=== PATIENT | female | born 1970 | race Caucasian/White ===

== ENCOUNTER 2016-08-23 19:03 | Emergency (ER) | payer MEDICAID ==
--- NOTE | 2016-08-23 19:49 | ER Document Report ---
ED Medical Screen (RME) - General Stated Complaint: RIGHT WRIST PAIN Notes: Right wrist pain with radiation extending up the arm patient states it's in her vein. No noted injury.. I greeted and performed a rapid initial assessment of this patient. Comprehensive ED assessment and evaluation of the patient, analysis of test results and completion of the medical decision making process will be conducted by additional ED providers. TRAVEL OUTSIDE OF THE [place] IN LAST 30 DAYS: No - Related Data Allergies/Adverse Reactions: No Known Allergies Allergy (Verified 08/25/14 03:58) Past Medical History Pulmonary Medical History: Reports: Hx COPD GI Medical History: Reports: Hx Gastroesophageal Reflux Disease Past Surgical History: Reports: Hx Section, Hx Cholecystectomy, Hx Tubal Ligation - Immunizations Hx Diphtheria, Pertussis, Tetanus Vaccination: No
[2016-08-23] MEDS ORDERED: NAPROXEN 250 MG TABLET PO ONE (20:47)
[2016-08-23] MEDS ORDERED: HYDROCODONE/ACETAMINOPHEN 5-325 MG 6 TAB/DSPK PO PRN (20:47)
--- NOTE | 2016-08-23 20:51 | ER Document Report ---
HPI - HPI Patient complains to provider of: right wrist pain Pain Level: 5 Context: Patient is a 45-year-old female that comes emergency department for chief complaint of right wrist pain and swelling that she started noticing today. She is unsure if she had any injury to the area. She is right-handed. She denies any redness, fever, chills, nausea, vomiting. She smokes, she denies any history of blood clots, she denies recent surgery or travel. She states she looked up swelling in the arm and blood clot was a possibility so she became concerned and came in. - REPRODUCTIVE Reproductive: DENIES: : - DERM Skin Color: Normal Past Medical History - General Information source: Patient - Social History Smoking Status: Current Every Day Smoker Chew tobacco use (# tins/day): No Frequency of alcohol use: None Drug Abuse: None Lives with: Family Family History: Reviewed & Not Pertinent Patient has suicidal ideation: No Patient has homicidal ideation: No Pulmonary Medical History: Reports: Hx COPD Renal/ Medical History: Denies: Hx Peritoneal Dialysis GI Medical History: Reports: Hx Gastroesophageal Reflux Disease Past Surgical History: Reports: Hx Section, Hx Cholecystectomy, Hx Tubal Ligation - Immunizations Hx Diphtheria, Pertussis, Tetanus Vaccination: No Vertical Provider Document - CONSTITUTIONAL General Appearance: WD/WN, No Apparent Distress - INFECTION CONTROL TRAVEL OUTSIDE OF THE [place] IN LAST 30 DAYS: No - HEENT HEENT: Atraumatic, Normocephalic - NECK Neck: Normal Inspection - RESPIRATORY Respiratory: Breath Sounds Normal, No Respiratory Distress O2 Sat by Pulse Oximetry: 97 - CARDIOVASCULAR Cardiovascular: Regular Rate, Regular Rhythm - GI/ABDOMEN Gastrointestinal: Abdomen Soft, Abdomen Non-Tender - BACK Back: Normal Inspection - MUSCULOSKELETAL/EXTREMETIES Musculoskeletal/Extremeties: Tender - mild soft tissue swelling over the flexor radial aspect of the right wrist, there is mild tenderness to the area, there is no edema, there is no erythema or irregular heat to the area, there is no induration or fluctuance. Normal range of motion of the wrist, elbow, fingers, normal capillary refill and sensation, normal radial pulse Course - Re-evaluation Re-evalutation: There is mild soft tissue swelling over the flexor radial aspect of the right wrist, there is mild tenderness to the area, there is no edema, there is no erythema or irregular heat to the area, there is no induration or fluctuance. No evidence of infection or blood clot. Appears to be injury related. Patient admits that she might have injured herself when lifting an object. Patient was provided with a premade immobilization device, anti-inflammatory medication, discussed icing, primary care follow-up, return precautions. Patient states understanding and agreement. - Vital Signs Vital signs: Temp Pulse Resp BP Pulse Ox 98 F 75 16 123/68 97 08/23/16 19:48 08/23/16 19:48 08/23/16 19:48 08/23/16 19:48 08/23/16 19:48 Procedures - Immobilization right wrist Pre-Proc Neuro Vasc Exam: Normal Immobilizer type: Cock-up - Right wrist Performed by: RN Post-Proc Neuro Vasc Exam: Normal Alignment checked and good: Yes Discharge - Discharge Clinical Impression: Wrist pain Qualifiers: Laterality: right Qualified Code(s): M25.531 - Pain in right wrist Condition: Stable Disposition: HOME, SELF-CARE Additional Instructions: There is some soft tissue swelling in the wrist area, both on imaging and on examination. X-ray shows no other abnormality. Physical examination does not suggest either blood clot or infection. This appears to be from a strain injury. Wear the splint if comfortable, take the anti-inflammatory, apply ice to the area 3-4 times a day for 10-15 minutes. Follow-up with primary care. Return to emergency department for any concerning or worsening symptoms including redness to the area, severe/increased swelling, fever, etc. Prescriptions: Naproxen 500 mg PO BID #14 tablet
[2016-08-23 21:54] VITALS: BP 120/84
== END 2016-08-23 21:54 | disposition home or self-care (01) ==
LOC: ER 19:03
DX: M25.531 Pain in right wrist (principal); F17.200 Nicotine dependence, unspecified, uncomplicated; J44.9 Chronic obstructive pulmonary disease, unspecified; Z90.49 Acquired absence of other specified parts of digestive tract; Z98.51 Tubal ligation status
CPT/HCPCS: 99283; 73110; L3984; J3490

== ENCOUNTER → 2018-08-03 | Outpatient (CLI) | payer MEDICAID ==
--- NOTE | 2018-08-03 13:25 | RADIOLOGY REPORT (SQ) ---
EXAM DESCRIPTION: CHEST PA/LATERAL COMPLETED DATE/TIME: 08/03/2018 12:55 pm REASON FOR STUDY: COUGH COMPARISON: 02/08/2013 EXAM PARAMETERS: NUMBER OF VIEWS: two views TECHNIQUE: Digital Frontal and Lateral radiographic views of the chest acquired. RADIATION DOSE: NA LIMITATIONS: none FINDINGS: LUNGS AND PLEURA: No opacities, masses or pneumothorax. No pleural effusion. MEDIASTINUM AND HILAR STRUCTURES: No masses or contour abnormalities. HEART AND VASCULAR STRUCTURES: Heart normal size. No evidence for failure. BONES: No acute findings. HARDWARE: None in the chest. OTHER: No other significant finding. IMPRESSION: NO SIGNIFICANT RADIOGRAPHIC FINDING IN THE CHEST. TECHNICAL DOCUMENTATION: JOB ID: [id number]- All Rights Reserved Reading location - IP/workstation name: [email or web address]
== END ==
LOC: OD 12:39
PROVIDERS: ATTEND Nurse Practitioner Family
DX: R05 Cough (principal)
CPT/HCPCS: 71046

== ENCOUNTER 2019-07-20 18:02 | Emergency (ER) | payer MEDICAID ==
[2019-07-20 18:22] VITALS: BP 141/84
== END 2019-07-20 22:05 | disposition left against medical advice (07) ==
LOC: ER 18:02
DX: Z53.21 Procedure and treatment not carried out due to patient leaving prior to being seen by health care provider (principal)

== ENCOUNTER 2019-09-17 20:08 | Emergency (ER) | payer MEDICAID ==
[2019-09-17 20:27] VITALS: BP 118/79
[2019-09-17] MEDS ORDERED: ACETAMINOPHEN 325 MG TABLET PO ONE (20:28)
--- NOTE | 2019-09-17 20:31 | ER Document Report ---
HPI - HPI Patient complains to provider of: Laceration Time Seen by Provider: 09/17/19 20:28 Onset: This afternoon Onset/Duration: Sudden Quality of pain: Burning Pain Level: 3 Context: Patient was using a knife to cut at home and slipped cutting her left second finger. Patient with laceration to the tip of the left second finger that has continued to bleed. Patient's tetanus immunization is currently up-to-date. Associated Symptoms: Other - Left finger laceration Exacerbated by: Movement Relieved by: Denies Similar symptoms previously: No Recently seen / treated by doctor: No - ROS ROS below otherwise negative: Yes Systems Reviewed and Negative: Yes All other systems reviewed and negative - GASTROINTESTINAL Gastrointestinal: DENIES: Nausea - REPRODUCTIVE Reproductive: DENIES: : - MUSCULOSKELETAL Musculoskeletal: REPORTS: Extremity pain - DERM Skin Problems: Laceration Past Medical History - General Information source: Patient - Social History Smoking Status: Current Some Day Smoker Frequency of alcohol use: None Drug Abuse: None Lives with: Family Family History: Reviewed & Not Pertinent Pulmonary Medical History: Reports: Hx COPD Renal/ Medical History: Denies: Hx Peritoneal Dialysis GI Medical History: Reports: Hx Gastroesophageal Reflux Disease Past Surgical History: Reports: Hx Section, Hx Cholecystectomy, Hx Tubal Ligation - Immunizations Hx Diphtheria, Pertussis, Tetanus Vaccination: No Vertical Provider Document - CONSTITUTIONAL Agree With Documented VS: Yes Exam Limitations: No Limitations General Appearance: WD/WN, No Apparent Distress - INFECTION CONTROL TRAVEL OUTSIDE OF THE [place] IN LAST 30 DAYS: No - HEENT HEENT: Atraumatic, Normocephalic - NECK Neck: Normal Inspection - RESPIRATORY Respiratory: No Respiratory Distress - CARDIOVASCULAR Pulses: Normal: Radial - MUSCULOSKELETAL/EXTREMETIES Musculoskeletal/Extremeties: MAEW, FROM - NEURO Level of Consciousness: Awake, Alert, Appropriate Motor/Sensory: No Motor Deficit - DERM Integumentary: Warm, Dry, Laceration - Superficial .5 cm avulsion laceration to distal tip of left second finger, minimal bleeding noted Course - Re-evaluation Re-evalutation: 09/17/19 Bleeding stopped to wound with placement of Gelfoam dressing per nurse. - Vital Signs Vital signs: Temp Pulse Resp BP Pulse Ox 98.2 F 67 16 118/79 98 09/17/19 20:25 09/17/19 20:25 09/17/19 20:25 09/17/19 20:25 09/17/19 20:25 Discharge - Discharge Clinical Impression: Skin avulsion Condition: Stable Disposition: HOME, SELF-CARE Instructions: Non-Sutured Laceration ([facility]) Additional Instructions: Return immediately for any new or worsening symptoms Followup with your primary care provider, call tomorrow to make a followup appointment Keep wound covered as it continues to heal Referrals: WINNIE DONOHUE, DRAFTING DETAILER-C [Primary Care Provider] - Follow up as needed
== END 2019-09-17 21:03 | disposition home or self-care (01) ==
LOC: ER 20:08
DX: S61.211A Laceration without foreign body of left index finger without damage to nail, initial encounter (principal); W26.0XXA Contact with knife, initial encounter; Y93.89 Activity, other specified; F17.200 Nicotine dependence, unspecified, uncomplicated; J44.9 Chronic obstructive pulmonary disease, unspecified
CPT/HCPCS: 99283; J3490

== ENCOUNTER → 2019-10-30 | Outpatient (CLI) | payer MEDICAID ==
--- NOTE | 2019-10-30 13:47 | WOMENS IMAGING REPORT ---
EXAM DESCRIPTION: BILAT DIAGNOSTIC MAMMO W/CAD; U/S BREAST UNILATERAL, COMPL IMAGES COMPLETED DATE/TIME: 10/30/2019 11:37 am; 10/30/2019 12:32 pm REASON FOR STUDY: N63.21 UNSPECIFIED LUMP IN THE LEFT BREAST, UPPER OUTER QUADRANT; LT BREAST N63.21 N63.21 UNSPECIFIED LUMP IN THE LEFT BREAST, UPPER OUTER QUAD COMPARISON: None. EXAM PARAMETERS: Standard craniocaudal and mediolateral oblique views of each breast recorded using digital acquisition. Additional true lateral images of the left breast acquired. Read with the assistance of CAD: .[facility] - [employer] Version 9.2 LIMITATIONS: None. FINDINGS: RIGHT BREAST MASSES: No suspicious masses. CALCIFICATIONS: No new or suspicious calcifications. ARCHITECTURAL DISTORTION: None. ASYMMETRY: None noted. OTHER: No other significant findings. LEFT BREAST MASSES: No suspicious masses. CALCIFICATIONS: No new or suspicious calcifications. ARCHITECTURAL DISTORTION: None. ASYMMETRY: Indistinct asymmetry in the upper-outer breast corresponding to the palpable area. More c onspicuous and denser on the CC image. OTHER: No other significant finding. BREAST ULTRASOUND: TECHNIQUE: Static and dynamic grayscale images acquired of the left breast in the specific areas of c linical/mammographic concern, upper outer breast at 1- 2 o'clock location and axilla. Selected color Doppler images recorded. ELASTOGRAPHY PERFORMED: No. LIMITATIONS: None. FINDINGS: MASS: Irregular hypoechoic mass measuring approximately 2.2 x 3.0 x 3.4 cm. Indistinct margins. No significant flow on Doppler imaging. Left axillary lymph node with thickened cortex. ELASTOGRAPHY CHARACTERISTICS: Not applicable. OTHER: No other significant finding. IMPRESSION: Indistinct area of asymmetry in the upper-outer left breast which has suspicious appeara nce on ultrasound. Additionally there is a suspicious left axillary lymph node on ultrasound. No wo rrisome findings in the right breast. BREAST DENSITY: b. There are scattered areas of fibroglandular density. BIRAD: ASSESSMENT: 4 Suspicious. Biopsy should be performed in the absence of clinical contra-indic ation. RECOMMENDATION: RECOMMENDED FOLLOW UP: Birads 4: Biopsy should be performed in the absence of clinic al contraindication. SPECIFIC INTERVENTION/IMAGING/CONSULTATION RECOMMENDED:The suspicious finding(s) amenable to US guide d core/vacuum assisted biopsy. COMMUNICATION:The imaging findings were not discussed with the patient. Her referring provider has be en notified of the findings. COMMENT: The patient has been notified of the results by letter per SA requirements. Additional no tification policies are in place for contacting patient with suspicious or incomplete findings. Quality ID #225: The [employer] recommends an annual screening mammogram for women aged 40 years or over. This facility utilizes a reminder system to ensure that all patients receive reminder letters, and/or direct phone calls for appointments. This includes reminders for routine scr eening mammograms, diagnostic mammograms, or other Breast Imaging Interventions when appropriate. Th is patient will be placed in the appropriate reminder system. TECHNICAL DOCUMENTATION: FINDING NUMBER: (1) ASSESSMENT: (1) JOB ID: [id number] 2010 [employer]- All Rights Reserved Reading location - IP/workstation name: [email or web address]
--- NOTE | 2019-10-30 13:47 | WOMENS IMAGING REPORT ---
EXAM DESCRIPTION: BILAT DIAGNOSTIC MAMMO W/CAD; U/S BREAST UNILATERAL, COMPL IMAGES COMPLETED DATE/TIME: 10/30/2019 11:37 am; 10/30/2019 12:32 pm REASON FOR STUDY: N63.21 UNSPECIFIED LUMP IN THE LEFT BREAST, UPPER OUTER QUADRANT; LT BREAST N63.21 N63.21 UNSPECIFIED LUMP IN THE LEFT BREAST, UPPER OUTER QUAD COMPARISON: None. EXAM PARAMETERS: Standard craniocaudal and mediolateral oblique views of each breast recorded using digital acquisition. Additional true lateral images of the left breast acquired. Read with the assistance of CAD: .[facility] [place] [employer] Version 9.2 LIMITATIONS: None. FINDINGS: RIGHT BREAST MASSES: No suspicious masses. CALCIFICATIONS: No new or suspicious calcifications. ARCHITECTURAL DISTORTION: None. ASYMMETRY: None noted. OTHER: No other significant findings. LEFT BREAST MASSES: No suspicious masses. CALCIFICATIONS: No new or suspicious calcifications. ARCHITECTURAL DISTORTION: None. ASYMMETRY: Indistinct asymmetry in the upper-outer breast corresponding to the palpable area. More c onspicuous and denser on the CC image. OTHER: No other significant finding. BREAST ULTRASOUND: TECHNIQUE: Static and dynamic grayscale images acquired of the left breast in the specific areas of c linical/mammographic concern, upper outer breast at 1- 2 o'clock location and axilla. Selected color Doppler images recorded. ELASTOGRAPHY PERFORMED: No. LIMITATIONS: None. FINDINGS: MASS: Irregular hypoechoic mass measuring approximately 2.2 x 3.0 x 3.4 cm. Indistinct margins. No significant flow on Doppler imaging. Left axillary lymph node with thickened cortex. ELASTOGRAPHY CHARACTERISTICS: Not applicable. OTHER: No other significant finding. IMPRESSION: Indistinct area of asymmetry in the upper-outer left breast which has suspicious appeara nce on ultrasound. Additionally there is a suspicious left axillary lymph node on ultrasound. No wo rrisome findings in the right breast. BREAST DENSITY: b. There are scattered areas of fibroglandular density. BIRAD: ASSESSMENT: 4 Suspicious. Biopsy should be performed in the absence of clinical contra-indic ation. RECOMMENDATION: RECOMMENDED FOLLOW UP: Birads 4: Biopsy should be performed in the absence of clinic al contraindication. SPECIFIC INTERVENTION/IMAGING/CONSULTATION RECOMMENDED:The suspicious finding(s) amenable to US guide d core/vacuum assisted biopsy. COMMUNICATION:The imaging findings were not discussed with the patient. Her referring provider has be en notified of the findings. COMMENT: The patient has been notified of the results by letter per SA requirements. Additional no tification policies are in place for contacting patient with suspicious or incomplete findings. Quality ID #225: The [place] [employer] recommends an annual screening mammogram for women aged 40 years or over. This facility utilizes a reminder system to ensure that all patients receive reminder letters, and/or direct phone calls for appointments. This includes reminders for routine scr eening mammograms, diagnostic mammograms, or other Breast Imaging Interventions when appropriate. Th is patient will be placed in the appropriate reminder system. TECHNICAL DOCUMENTATION: FINDING NUMBER: (1) ASSESSMENT: (1) JOB ID: [id number] 2010 [employer]- All Rights Reserved Reading location - IP/workstation name: [email or web address]
== END ==
LOC: WI 11:19
PROVIDERS: ATTEND Nurse Practitioner Family
DX: N63.21 Unspecified lump in the left breast, upper outer quadrant (principal)
CPT/HCPCS: 76641; 77066

== ENCOUNTER → 2019-11-28 | Outpatient (CLI) | payer MEDICAID ==
--- NOTE | 2019-11-28 13:28 | XCELERA REPORT ---
[address] [address] Transthoracic Echocardiogram Report Name: TINY [place] Age: 49 yrs Gender: Female : 1970 Patient Status: Outpatient Patient Location: [facility] Study Date: 11/28/2019 08:20 AM Height: 64 in Weight: 210 lb BSA: 2.0 m2 Reason For Study: SOB, LT BREAST CA Ordering Physician: EDD LUIS Performed By: Mitchell Lehman Interpretation Summary minimal post. pericardial effusion. Aortic root not dilated, not calcified. AV is normal 3 cusps, no , no AR. MV showed no calcified mitral annulus, no MS, no MVP, mild MR with no LA enlargement SOSA is 19.5cc/m2. No LVH, normal LVEF 65-70% with may be elev. LVEDP (B notch on the AML) but no E/E' shown no LVDD evidence. Mild hypokinesis of the inferior wall and inferoseptal wall, this is mild though. there is no LV enlargement, LVESD isss 33 mm . Right heart not enlarged but poorly imaged, There is mild TR with mild elev. RVSP of 33 mmHg, RAP estimated to be 15 mm due to enlarged IVC , and <50% sniff. This is mild pulm hypertension. Summary, Mild pulm hypertension 33 mm Hg. Normal LVEF of 65-770 % with mild hypokinesis of the inferior and inferoseptal wall, clinical correlation with prev.cardiac history recommended. There may be an element of increased LVEDP. AKT. MMode/2D Measurements & Calculations RVDd: 3.1 cm LVIDd: 5.3 cm FS: 37.9 % Ao root diam: 2.8 cm IVSd: 0.92 cm LVIDs: 3.3 cm EDV(Teich): 137.7 ml LVPWd: 0.88 cm ESV(Teich): 44.7 ml Ao root area: 6.3 cm2 LA dimension: 3.9 cm EF(Teich): 67.6 % Doppler Measurements & Calculations MV E max joey: MV P1/2t max joey: Ao V2 max: LV V1 max P.1 cm/sec 80.1 cm/sec 155.4 cm/sec 5.0 mmHg MV A max joey: MV P1/2t: 72.8 msec Ao max PG: LV V1 max: 77.9 cm/sec MVA(P1/2t): 3.0 cm2 9.7 mmHg 111.3 cm/sec MV E/A: 1.2 MV dec slope: LV dP/dt: 1298 mmHg/s 322.2 cm/sec2 MV dec time: 0.23 sec PA V2 max: PI end-d joey: TR max joey: MV P1/2t-pr_phl: 81.9 cm/sec 109.7 cm/sec 208.7 cm/sec 72.8 msec PA max PG: TR max P.7 mmHg 17.4 mmHg I WMSI = 1.19 % Normal = 81 Segments Size X - Cannot 2 - 4 - 1-2 small Interpret 1 - Normal Hypokinetic 3 - AkineticDyskinetic 3-5 moderate 5 - 6-14 large Aneurysmal 15-16 diffuse : EDD LUIS Andre
== END ==
LOC: SP 07:59
PROVIDERS: ATTEND Internal Medicine
DX: R06.02 Shortness of breath (principal); I27.20 Pulmonary hypertension, unspecified; C50.412 Malignant neoplasm of upper-outer quadrant of left female breast
CPT/HCPCS: 93306

== ENCOUNTER → 2019-11-29 | Outpatient (CLI) | payer MEDICAID ==
--- NOTE | 2019-11-30 08:49 | RADIOLOGY REPORT (SQ) ---
EXAM DESCRIPTION: MRI BREAST BILATERAL W/WO IMAGES COMPLETED DATE/TIME: 11/29/2019 10:53 am REASON FOR STUDY: BREAST CA (C50.919) C50.919 MALIGNANT NEOPLASM OF UNSP SITE OF UNSPECIFIED FEMAL COMPARISON: None. PATHOLOGIC CORRELATION: Mammograms and left ultrasound 10/30/2019. CONTRAST TYPE AND DOSE: 20 mL Prohance. RENAL FUNCTION: None indicated. TECHNIQUE: MR imaging performed with a dedicated breast coil. Pre contrast T1 and T2 weighted images . Pre contrast and post contrast enhanced T1 weighted images with fat saturation. Subtraction images, 3D thick and thin MIPS, and kinetic analysis performed on an independent workstat ion. ([employer] TV workstation) Magnet strength: 1.5 T LIMITATIONS: None. FINDINGS: BREAST DENSITY: b. There are scattered areas of fibroglandular density. BACKGROUND PARENCHYMAL ENHANCEMENT:Minimal. RIGHT BREAST: No enhancing or suspicious masses. No clumped, regional/segmental ductal enhancement. CHEST WALL: Normal tissue planes. No abnormal internal mammary nodes. AXILLA: Normal axillary and retro-pectoral nodes. LEFT BREAST:Index lesion 1 o'clock position about 7 cm deep to the nipple measures 2.3 x 2.8 cm AP by transverse diameter. No other masses. No clumped, regional/segmental ductal enhancement. CHEST WALL: Normal tissue planes. No abnormal internal mammary nodes. AXILLA: There are 2 closely opposed axillary nodes, the largest 1.5 x 2.8 cm which has been biopsied . OTHER:No identified liver, bone, or lung lesions. No other significant incidental findings. IMPRESSION: 1. Known malignancy and axillary metastasis left breast. No evidence of multifocal disease. 2. No evidence of malignancy in the right breast. BIRAD: RIGHT BREAST: 1 Negative. LEFT BREAST: 6 Known biopsy-proven malignancy. Appropriate action should be taken. RECOMMENDATION: RECOMMENDED FOLLOW-UP: Per Dr. Layne. TECHNICAL DOCUMENTATION: JOB ID: [id number] 2010 [employer]- All Rights Reserved Reading location - IP/workstation name: [email or web address]
== END ==
LOC: RAD 09:39
PROVIDERS: ATTEND Surgery
DX: C50.912 Malignant neoplasm of unspecified site of left female breast (principal); C77.3 Secondary and unspecified malignant neoplasm of axilla and upper limb lymph nodes
CPT/HCPCS: 77049; A9576

== ENCOUNTER → 2019-11-30 | Outpatient (CLI) | payer MEDICAID ==
--- NOTE | 2019-11-30 10:55 | WOMENS IMAGING REPORT ---
EXAM DESCRIPTION: LEFT DIAGNOSTIC MAMMO W/CAD IMAGES COMPLETED DATE/TIME: 11/30/2019 10:28 am REASON FOR STUDY: N63.20 POST BIOPSY TO ASSESS CLIP PLACEMENT N63.20 UNSPECIFIED LUMP IN THE LEFT B REAST, UNSPECIFIED QUAD COMPARISON: 10/30/2019 EXAM PARAMETERS: Standard craniocaudal and mediolateral oblique images of the breast recorded with d igital acquisition. True lateral view. Read with the assistance of CAD. .[facility] - [employer] Installer Version 9.2 LIMITATIONS: None. FINDINGS: BREAST LATERALITY: left Ribbon marker clip in the upper outer quadrant 9.5 cm deep to the nipple corresponds to the previousl y described abnormality. IMPRESSION: Successful clip placement status post positive biopsy. BREAST DENSITY: b. There are scattered areas of fibroglandular density. BIRAD: ASSESSMENT: 6 Known biopsy-proven malignancy. Surgical excision when clinically appropriate. RECOMMENDATION: RECOMMENDED FOLLOW UP: Per Dr. Layne. SPECIFIC INTERVENTION/IMAGING/CONSULTATION RECOMMENDED:No additional intervention/ imaging/consultati on needed at this time. COMMUNICATION:The imaging findings were not discussed with the patient. Her referring provider has be en notified of the findings. COMMENT: The patient has been notified of the results by letter per MQSA requirements. Additional no tification policies are in place for contacting patient with suspicious or incomplete findings. Quality ID #225: The [employer] [employer] recommends an annual screening mammogram for women aged 40 years or over. This facility utilizes a reminder system to ensure that all patients receive reminder letters, and/or direct phone calls for appointments. This includes reminders for routine scr eening mammograms, diagnostic mammograms, or other Breast Imaging Interventions when appropriate. Th is patient will be placed in the appropriate reminder system. TECHNICAL DOCUMENTATION: FINDING NUMBER: (1) ASSESSMENT: (1) JOB ID: [id number] 2010 [employer]- All Rights Reserved Reading location - IP/workstation name: [email or web address]
== END ==
LOC: WI 10:48
PROVIDERS: ATTEND Surgery
DX: N63.21 Unspecified lump in the left breast, upper outer quadrant (principal)
CPT/HCPCS: 77065

== ENCOUNTER 2020-01-19 02:24 | Emergency (ER) | payer MEDICAID ==
[2020-01-19 02:37] VITALS: BP 127/71
== END 2020-01-19 07:06 | disposition left against medical advice (07) ==
LOC: ER 02:24
DX: Z53.21 Procedure and treatment not carried out due to patient leaving prior to being seen by health care provider (principal)

== ENCOUNTER → 2020-02-29 | Outpatient (CLI) | payer MEDICAID ==
--- NOTE | 2020-02-29 20:31 | XCELERA REPORT ---
[address] [address] Transthoracic Echocardiogram Report Name: TINY [place] Age: 49 yrs Gender: Female : 1970 Patient Status: Outpatient Patient Location: [facility] Study Date: 02/29/2020 01:35 PM Height: 64 in Weight: 195 lb BSA: 1.9 m2 Reason For Study: CHEMOTHERAPY, BREAST CA Ordering Physician: YINA GARRETT Performed By: Mimi Ivan Interpretation Summary Minimal posterior pericardial effusion. Mild calcified ao root, not dilated. AV is a 3 cusps valve, with no and no AR. Mild mitral annular calcification. No MS, No MVP. Mild MR with No left atrial enlargement, SOSA = 27. No LVH, LVEF 60%, stage I LV diastolic dysfunction, and increased LVEDP. Segmental regional wall motion abnormality seen in inferior wall, inferoseptal wall, No LV enlargement. Tricuspid valve, mild TV regurgitation. RVSP = 25 mmHg. Right heart is normal size. TAPSE is reduced, mild RVSD. No ASD. IVC not dilated. Trace PA. Summary of findings = normal 3 cusps AV. Mild MAC, no MS/mild MR, no LA enlargement. No LVH , normal LVEF 60%, with stage I LV Diastolic Dysfunction. Mild regional wall motion abnormality in inferior wall an inferoseptal wall. Normal R heart, but mild RVSD, with no pulm HTN. Mild MR, TR, trace PA. Dr González Dailey. MMode/2D Measurements & Calculations RVDd: 3.2 cm LVIDd: 5.0 cm FS: 34.8 % Ao root diam: 2.7 cm IVSd: 0.95 cm LVIDs: 3.2 cm EDV(Teich): 116.4 ml LVPWd: 0.93 cm ESV(Teich): 42.1 ml Ao root area: 5.5 cm2 LA dimension: 3.8 cm EF(Teich): 63.8 % Doppler Measurements & Calculations MV E max joey: MV P1/2t max joey: Ao V2 max: LV V1 max P.0 cm/sec 70.3 cm/sec 134.2 cm/sec 5.5 mmHg MV A max joey: MV P1/2t: 63.8 msec Ao max PG: LV V1 max: 72.7 cm/sec MVA(P1/2t): 3.4 cm2 7.2 mmHg 117.2 cm/sec MV E/A: 0.98 MV dec slope: LV dP/dt: 1515 mmHg/s 322.4 cm/sec2 MV dec time: 0.22 sec PA V2 max: PI end-d joey: TR max joey: MV P1/2t-pr_phl: 85.9 cm/sec 118.4 cm/sec 232.9 cm/sec 63.8 msec PA max PG: TR max P.0 mmHg 21.7 mmHg I WMSI = 1.38 % Normal = 63 Segments Size X - Cannot 2 - 4 - 1-2 small Interpret 1 - Normal Hypokinetic 3 - AkineticDyskinetic 3-5 moderate 5 - 6-14 large Aneurysmal 15-16 diffuse : YINA GARRETT Andre
== END ==
LOC: SP 13:07
PROVIDERS: ATTEND Physician Assistant Medical
DX: C50.412 Malignant neoplasm of upper-outer quadrant of left female breast (principal); Z79.899 Other long term (current) drug therapy
CPT/HCPCS: 93306

== ENCOUNTER 2020-04-27 14:03 | Emergency (ER) | payer MEDICAID ==
[2020-04-27 14:13] VITALS: BP 128/75
--- NOTE | 2020-04-27 14:27 | ER Document Report ---
HPI - HPI Patient complains to provider of: finger injury Time Seen by Provider: 04/27/20 14:25 Severity: Moderate Context: 49-year-old female past medical history significant for breast cancer undergoing chemo presents to the emergency room with a skin avulsion to the dorsal aspect of her left middle finger. Patient states she was using a knife to cut vegetables when it slipped cutting her finger. States she has been unable to control the bleeding. Not currently on blood thinners. Tetanus is up-to-date. Patient is right-handed. Associated Symptoms: None Exacerbated by: Movement Relieved by: Denies Similar symptoms previously: No Recently seen / treated by doctor: No - ROS Systems Reviewed and Negative: Yes All other systems reviewed and negative - CONSTITUTIONAL Constitutional: DENIES: Fever - REPRODUCTIVE Reproductive: DENIES: : - MUSCULOSKELETAL Musculoskeletal: REPORTS: Extremity pain - DERM Skin Color: Erythema Skin Problems: Laceration Past Medical History - General Information source: Patient - Social History Smoking Status: Current Every Day Smoker Frequency of alcohol use: None Drug Abuse: None Family History: Reviewed & Not Pertinent Patient has suicidal ideation: No Patient has homicidal ideation: No Pulmonary Medical History: Reports: Hx COPD Renal/ Medical History: Denies: Hx Peritoneal Dialysis Malignancy Medical History: Reports: Hx Breast Cancer GI Medical History: Reports: Hx Gastroesophageal Reflux Disease Past Surgical History: Reports: Hx Section, Hx Cholecystectomy, Hx Tubal Ligation - Immunizations Hx Diphtheria, Pertussis, Tetanus Vaccination: No Vertical Provider Document - CONSTITUTIONAL Agree With Documented VS: Yes Exam Limitations: No Limitations General Appearance: Mild Distress - INFECTION CONTROL TRAVEL OUTSIDE OF THE [place] IN LAST 30 DAYS: No - HEENT HEENT: Atraumatic, Normocephalic - NECK Neck: Normal Inspection, Supple - RESPIRATORY Respiratory: Breath Sounds Normal, No Respiratory Distress - CARDIOVASCULAR Cardiovascular: Regular Rate, Regular Rhythm, No Murmur - MUSCULOSKELETAL/EXTREMETIES Musculoskeletal/Extremeties: Tender - Tenderness to the distal aspect of the left middle finger dorsal aspect. Full range of motion. No deformity noted. - NEURO Level of Consciousness: Awake, Alert, Appropriate Motor/Sensory: No Motor Deficit, No Sensory Deficit Notes: Positive left radial pulse. Capillary refill less than 3 seconds. - DERM Integumentary: Warm, Dry Notes: There is a 1/4 cm skin avulsion to the distal medial aspect dorsal side of the left middle finger. Bleeding is persistent. No nail involvement. Course - Re-evaluation Re-evalutation: 04/27/20 14:33 Wound was cleansed with Shur-Clens quick clot and dressing applied by nursing staff as documented. Patient was counseled on proper wound care. Recheck with primary care physician in 2 days. Patient was given strict return to the emergency room guidelines. Return for any new or worsening symptoms. All questions were answered. Patient verbalized understanding and agrees with plan of care. - Vital Signs Vital signs: Temp Pulse Resp BP Pulse Ox 97.8 F 75 16 128/75 H 99 04/27/20 14:10 04/27/20 14:10 04/27/20 14:10 04/27/20 14:10 04/27/20 14:10 Procedures - Laceration/Wound Repair Left Finger 3rd digit Time completed: 14:32 Wound length (cm): 0.5 Wound's Depth, Shape: Superficial Laceration pre-procedure: Shur-Clens applied Wound explored: Clean Wound Repaired With: Other - quick clot Post-procedure wound care: Other - quick clot and dressing applied Post-procedure NV exam normal: Yes Complications: No Discharge - Discharge Clinical Impression: Avulsion of skin of finger Qualifiers: Encounter type: initial encounter Qualified Code(s): S61.209A - Unspecified open wound of unspecified finger without damage to nail, initial encounter Condition: Stable Disposition: HOME, SELF-CARE Instructions: Avulsion Injury ([facility]) Additional Instructions: Leave dressing in place for 48 hours can then remove dressing may need to soak in warm water to remove the quick clot dressing. Recheck with primary care physician in 2 days. Return to the emergency room for any new or worsening symptoms. Referrals: EVON PARRA DO [Primary Care Provider] - Follow up in 3-5 days (Recheck 2 days.)
== END 2020-04-27 14:42 | disposition home or self-care (01) ==
LOC: ER 14:03
DX: S61.209A Unspecified open wound of unspecified finger without damage to nail, initial encounter (principal); C50.919 Malignant neoplasm of unspecified site of unspecified female breast; F17.200 Nicotine dependence, unspecified, uncomplicated; W26.0XXA Contact with knife, initial encounter; Y93.G1 Activity, food preparation and clean up; Z79.899 Other long term (current) drug therapy
CPT/HCPCS: 99282

== ENCOUNTER → 2020-08-02 | Outpatient (CLI) | payer MEDICAID ==
--- NOTE | 2020-08-02 12:39 | WOMENS IMAGING REPORT ---
EXAM DESCRIPTION: U/S EXTREMITY NONVASCULAR LTD IMAGES COMPLETED DATE/TIME: 08/02/2020 11:48 am REASON FOR STUDY: C50.412 MALIG NEOPLASM OF UPPER-OUTER QUADRANT OF LEFT FEMALE BREAST C50.412 ZACHARY G NEOPLASM OF UPPER-OUTER QUADRANT OF LEFT FEMAL COMPARISON: None. TECHNIQUE: Dynamic and static grayscale images acquired of the localized site of clinical concern an d recorded on PACS. Additional selected color Doppler and spectral images recorded. SITE OF CONCERN: Left axilla LIMITATIONS: None. FINDINGS: Several unremarkable axillary lymph nodes are visualized. Defined fatty sammy with no unus ual cortical thickening. Otherwise no solid or cystic mass. IMPRESSION: NO WORRISOME SONOGRAPHIC FINDINGS. UNREMARKABLE BENIGN-APPEARING AXILLARY LYMPH NODES. TECHNICAL DOCUMENTATION: JOB ID: [id number] 2010 [employer]- All Rights Reserved Reading location - IP/workstation name: [email or web address]
== END ==
LOC: WI 11:08
PROVIDERS: ATTEND Surgery
DX: C50.412 Malignant neoplasm of upper-outer quadrant of left female breast (principal)
CPT/HCPCS: 76882

== ENCOUNTER 2020-08-19 09:25 | Emergency (ER) | payer MEDICAID ==
--- NOTE | 2020-08-19 09:58 | EKG REPORT ---
SEVERITY:- ABNORMAL ECG - SINUS BRADYCARDIA Anterior ischemia is possible. : Confirmed by: Nghia Holley MD 19-Aug-2020 09:58:16
--- NOTE | 2020-08-19 10:06 | RADIOLOGY REPORT (SQ) ---
EXAM DESCRIPTION: CHEST SINGLE VIEW IMAGES COMPLETED DATE/TIME: 08/19/2020 9:58 am REASON FOR STUDY: chest pain/palpitation COMPARISON: PA and lateral views of the chest from 08/03/2018. EXAM PARAMETERS: NUMBER OF VIEWS: One view. TECHNIQUE: An AP view of the chest was obtained. RADIATION DOSE: NA LIMITATIONS: None. FINDINGS: LUNGS AND PLEURA: Low inspiratory lung volumes without a superimposed consolidation, pleur al effusion or pneumothorax. MEDIASTINUM AND HILAR STRUCTURES: No mediastinal or hilar contour abnormality. HEART AND VASCULAR STRUCTURES: The cardiac silhouette and pulmonary vasculature are within normal [place] its given the low inspiratory lung volumes. BONES: No acute findings. HARDWARE: The tip of the right IJ single-lumen port projects within the SVC. OTHER: Surgical clips that project within the left axilla. IMPRESSION: Low inspiratory lung volumes without a superimposed acute cardiopulmonary process. TECHNICAL DOCUMENTATION: JOB ID: [id number] 2010 [employer]- All Rights Reserved Reading location - IP/workstation name: [email or web address]
[2020-08-19] MEDS ORDERED: NORFLURANE/PENTAFLUOROPROPANE 30 ML SPRAY TP ONE (10:09)
[2020-08-19 10:55] LABS: HEMATOCRIT 27.4 % (36.0-47.0); HEMOGLOBIN 9.5 g/dL (12.0-15.5); MEAN CORPUSCULAR HEMOGLOBIN 35.4 pg (27.0-33.4); MEAN CORPUSCULAR HGB CONC 34.8 g/dL (32.0-36.0); MEAN CORPUSCULAR VOLUME 102 fl (80-97); PLATELET COUNT 114 10^3/uL (150-450); RED CELL DISTRIBUTION WIDTH 15.4 % (11.5-14.0); WHITE BLOOD COUNT 8.2 10^3/uL (4.0-10.5)
[2020-08-19 11:14] LABS: ALBUMIN 3.7 g/dL (3.5-5.0); ALKALINE PHOSPHATASE 76 U/L (38-126); ANION GAP 8 (5-19); ASPARTATE AMINO TRANSFERASE 23 U/L (14-36); BILIRUBIN,DIRECT 0.2 mg/dL (0.0-0.4); BILIRUBIN,TOTAL 0.3 mg/dL (0.2-1.3); BLOOD UREA NITROGEN 19 mg/dL (7-20); CALCIUM 9.2 mg/dL (8.4-10.2); CARBON DIOXIDE 26 mmol/L (22-30); CHLORIDE 107 mmol/L (98-107); CREATINE KINASE 32 U/L (30-135); GLUCOSE 104 mg/dL (75-110); POTASSIUM 3.8 mmol/L (3.6-5.0); TOTAL PROTEIN 6.3 g/dL (6.3-8.2)
[2020-08-19 11:18] LABS: ABSOLUTE LYMPHOCYTES# (MANUAL) 1.4 10^3/uL (0.5-4.7); BASOPHILS % (MANUAL) 0 % (0-2); EOSINOPHILS % (MANUAL) 0 % (0-6); LYMPHOCYTES % (MANUAL) 17 % (13-45); SEGMENTED NEUTROPHILS % (MAN) 79 % (42-78); TOTAL CELLS COUNTED 100
[2020-08-19 11:19] LABS: ABSOLUTE MONOCYTES # (MANUAL) 0.3 10^3/uL (0.1-1.4); MONOCYTES % (MANUAL) 4 % (3-13)
[2020-08-19 11:20] LABS: ANISOCYTOSIS SLIGHT; OVALOCYTES SLIGHT; PLATELET COMMENT DECREASED; POIKILOCYTOSIS SLIGHT
[2020-08-19 11:29] LABS: CREATINE KINASE MB 0.73 ng/mL (<4.55)
[2020-08-19 11:31] LABS: TROPONIN I < 0.012 ng/mL
--- NOTE | 2020-08-19 11:36 | RADIOLOGY REPORT (SQ) ---
EXAM DESCRIPTION: NM LUNG PERFUSION SCAN IMAGES COMPLETED DATE/TIME: 08/19/2020 11:22 am REASON FOR STUDY: SOB COMPARISON: AP view of the chest from 08/19/2020. RADIONUCLIDE AND DOSE: 5.09 millicuries TC-99m MAA The route of agent administration: Intravenous TECHNIQUE: Eight views of the lungs acquired following injection of MAA. LIMITATIONS: None. FINDINGS: PERFUSION: There is homogeneous distribution of the radionuclide without a wedge-shaped or segmental perfusion defect. OTHER: No other findings. IMPRESSION: NORMAL PERFUSION LUNG SCAN. TECHNICAL DOCUMENTATION: JOB ID: [id number] [employer]- All Rights Reserved Reading location - IP/workstation name: [email or web address]
--- NOTE | 2020-08-19 13:09 | ER Document Report ---
ED General - General Chief Complaint: Chest Pain Stated Complaint: PALPITATIONS, SHORTNESS OF BREATH Time Seen by Provider: 08/19/20 09:55 Primary Care Provider: VANESSA RIVERS MD [Primary Care Provider] - Follow up as needed Mode of Arrival: Ambulatory Information source: Patient TRAVEL OUTSIDE OF THE [place] IN LAST 30 DAYS: No - HPI Notes: Patient states that she had blue dye injected 3 days ago to locate lymph nodes in regards to her breast cancer. Right after this injection she developed swelling and trouble breathing. She had to be intubated. She was in the ICU for 1 day. She was discharged in the intensive care unit 2 days ago. She states today she noticed that she was short of breath and it was worse with exer ting herself. Is been moderate in intensity and relatively constant. No new swelling today. No new cough today. No cold or congestion. No rashes. Patient denies any pain. - Related Data Allergies/Adverse Reactions: isosulfan blue Allergy (Severe, Verified 08/19/20 12:37) Home Medications: famotidine, prednisone Past Medical History - General Information source: Patient - Social History Smoking Status: Former Smoker Frequency of alcohol use: None Drug Abuse: None Family History: Reviewed & Not Pertinent Pulmonary Medical History: Reports: Hx COPD Renal/ Medical History: Denies: Hx Peritoneal Dialysis Malignancy Medical History: Reports: Hx Breast Cancer GI Medical History: Reports: Hx Gastroesophageal Reflux Disease Past Surgical History: Reports: Hx Section, Hx Cholecystectomy, Hx Tubal Ligation - Immunizations Hx Diphtheria, Pertussis, Tetanus Vaccination: No Review of Systems - Review of Systems Constitutional: denies: Chills, Fever Cardiovascular: Palpitations. denies: Chest pain Respiratory: Short of breath. denies: Cough -: Yes All other systems reviewed and negative Physical Exam - Vital signs Vitals: Temp Pulse Resp BP Pulse Ox 98.3 F 78 20 132/71 H 99 08/19/20 09:37 08/19/20 09:37 08/19/20 09:37 08/19/20 09:37 08/19/20 09:37 Interpretation: Normal - General General appearance: Appears well, Alert - HEENT Head: Normocephalic, Atraumatic Eyes: Normal Pupils: PERRL - Respiratory Respiratory status: No respiratory distress Chest status: Nontender Breath sounds: Decreased air movement, Rhonchi Chest palpation: Normal - Cardiovascular Rhythm: Regular Heart sounds: Normal auscultation Murmur: No - Abdominal Inspection: Normal Distension: No distension Bowel sounds: Normal Tenderness: Nontender Organomegaly: No organomegaly - Back Back: Normal, Nontender - Extremities General upper extremity: Normal inspection, Nontender, Normal color, Normal ROM, Normal temperature General lower extremity: Normal inspection, Nontender, Normal color, Normal ROM, Normal temperature, Normal weight bearing. No: Jayy's sign - Neurological Neuro grossly intact: Yes Cognition: Normal Orientation: AAOx4 Samantha Coma Scale Eye Opening: Spontaneous Samantha Coma Scale Verbal: Oriented Samantha Coma Scale Motor: Obeys Commands Excel Coma Scale Total: 15 Speech: Normal Motor strength normal: LUE, RUE, LLE, RLE Sensory: Normal - Psychological Associated symptoms: Normal affect, Normal mood - Skin Skin Temperature: Warm Skin Moisture: Dry Skin Color: Normal Course - Re-evaluation Re-evalutation: 08/19/20 13:06 Patient has breast cancer presents with shortness of breath. She also has had an anaphylactic reaction requiring intubation within the last 3 days. Currently she is in the room and is nontoxic-appearing. She has stable vital signs. Laboratory values show no significant changes and nothing that would explain her shortness of breath. She had a VQ scan that is read as normal. Her exam is relatively unremarkable as well. EKG shows no acute changes. I did call and discussed the case with her oncologist, Dr. Gamez. She states that the patient would benefit from an outpatient echo. Patient is in agreement with being discharged and following up with an outpatient echocardiogram. - Vital Signs Vital signs: Temp Pulse Resp BP Pulse Ox 98.3 F 78 16 115/76 95 08/19/20 09:37 08/19/20 09:37 08/19/20 10:23 08/19/20 10:23 08/19/20 12:33 - Laboratory Results Result Diagrams: 08/19/20 10:25 08/19/20 10:25 Laboratory Results Interpreted: 08/19/20 10:25 RBC 2.70 L Hgb 9.5 L Hct 27.4 L MCV 102 H MCH 35.4 H RDW 15.4 H Plt Count 114 L Seg Neuts % (Manual) 79 H Critical Laboratory Results Reviewed: No Critical Results - Radiology Results Critical Radiology Results Reviewed: No Critical Results - EKG Interpretation by [place] EKG shows normal: Sinus rhythm Rate: Bradycardia - 58 Rhythm: NSR When compared to previous EKG there are: No significant change - Patient has some T wave inversions in V1 and V2 however these are not new changes. Discharge - Discharge Clinical Impression: Dyspnea Qualifiers: Dyspnea type: dyspnea on exertion Qualified Code(s): R06.00 - Dyspnea, unspecified Breast cancer Qualifiers: Breast location: unspecified site of breast Estrogen receptor status: unspecified Patient sex: female Laterality: right Qualified Code(s): C50.911 - Malignant neoplasm of unspecified site of right female breast Condition: Stable Disposition: HOME, SELF-CARE Instructions: Dyspnea, Nonspecific ([facility]) Additional Instructions: Please contact your oncologist as soon as possible to schedule an echocardiogram. Referrals: VANESSA RIVERS MD [Primary Care Provider] - Follow up in 3-5 days
[2020-08-19 13:31] VITALS: BP 127/76
== END 2020-08-19 13:39 | disposition home or self-care (01) ==
LOC: ER 09:25
DX: C50.911 Malignant neoplasm of unspecified site of right female breast (principal); R06.00 Dyspnea, unspecified; R07.9 Chest pain, unspecified; R00.2 Palpitations; R06.02 Shortness of breath; Z88.8 Allergy status to other drugs, medicaments and biological substances; Z79.899 Other long term (current) drug therapy; Z87.891 Personal history of nicotine dependence; J44.9 Chronic obstructive pulmonary disease, unspecified
CPT/HCPCS: 93005; 99285; 36415; 82553; 82550; 85025; 80053; 84484; 71045; 78580; 93010; A9540; Q9969; J3490; J1642